=== PATIENT | female | born 1980 | race Caucasian/White ===

== ENCOUNTER 2017-07-17 12:01 | Emergency (ER) | payer OTHER ==
[~2017-07-17] VITALS: Ht 154.9 cm; Wt 63.5 kg
[~2017-07-17 12:01] MED LIST: CLEOCIN HCL300 MG; MOTRIN800 MG; ZOLOFT25 MG
== END 2017-07-17 16:11 | disposition home or self-care (01) ==
LOC: ER 12:01
DX: R10.13 Epigastric pain (principal); K29.60 Other gastritis without bleeding